=== PATIENT | female | born 1990 | race Caucasian/White ===

== ENCOUNTER 2017-11-11 19:42 | Emergency (ER) | payer MEDICAID ==
[2017-11-11 20:04] VITALS: RESP 20
[2017-11-11 20:59] LABS: HCG,QUALITATIVE URINE NEGATIVE (NEGATIVE)
[2017-11-11 21:04] LABS: SQUAMOUS EPITHIAL 1 /hpf (0-5); URINE BACTERIA RARE (<OCC); URINE BILIRUBIN NEGATIVE (NEGATIVE); URINE BLOOD NEGATIVE (NEGATIVE); URINE CALCIUM OXALATE CRYSTALS OCC /hpf (<OCC); URINE CLARITY Clear (Clear); URINE COLOR Yellow (YELLOW); URINE GLUCOSE (UA) NORMAL (Normal); URINE LEUKOCYTE ESTERASE NEG Leu/uL (Negative); URINE PROTEIN NEGATIVE (NEGATIVE); URINE UROBILINOGEN NORMAL mg/dL (0.2-1.0)
--- NOTE | 2017-11-11 21:39 | C.PDOC ---
History Of Present Illness Pt learned that her friend miriam cox this evening and developed shaking/ anxiety. 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 denies: Suicidal Thoughts, Suicidal Plan Additional History Per: Prior Records Past Medical History Reviewed: Historical Data, Nursing Documentation, Vital Signs Vital Signs: Last Vital Signs Temp 98.6 F 11/11/17 19:57 Pulse 103 H 11/11/17 19:57 Resp 20 11/11/17 19:57 BP 104/74 11/11/17 19:57 Pulse Ox 100 11/11/17 19:57 - Medical History PMH: No Chronic Diseases Surgical History: No Surg Hx Family History: States: Unknown Family Hx - Social History Hx Tobacco Use: No Hx Alcohol Use: No Hx Substance Use: No Review Of Systems Except As Marked, All Systems Reviewed And Found Negative. Constitutional: Negative for: Fever, Weakness Eyes: Negative for: Vision Change Cardiovascular: Negative for: Chest Pain Respiratory: Negative for: Shortness of Breath Gastrointestinal: Negative for: Vomiting, Abdominal Pain Musculoskeletal: Negative for: Neck Pain Skin: Negative for: Rash Neurological: Positive for: Headache. Negative for: Weakness, Numbness Psych: Negative for: Psychosis Physical Exam - Physical Exam Appears: Non-toxic, Other (Teaful affect) Skin: Normal Color, Warm, Dry, No Rash Head: Atraumatic, Normacephalic Eye(s): bilateral: PERRL, EOMI Neck: Normal ROM, Supple Cardiovascular: Rhythm Regular Respiratory: Normal Breath Sounds, No Accessory Muscle Use Gastrointestinal/Abdominal: Soft, No Tenderness Extremity: Normal ROM Neurological/Psych: Oriented x3, Normal Cognition, No Cerebellar Signs, Normal Motor, Normal Sensation Gait: Steady ED Course And Treatment - Laboratory Results Urine POC: Negative O2 Sat by Pulse Oximetry: 100 Pulse Ox Interpretation: Normal Reassessment Condition: Improved Disposition Counseled Patient/Family Regarding: Studies Performed, Diagnosis, Need For Followup, Rx Given - Disposition Disposition: HOME/ ROUTINE Disposition Time: 21:39 Condition: IMPROVED Additional Instructions: Follow up with your doctor. Return to the ER if you develop suicidal or homicidal thoughts, worsening of symptoms or if you have any other concerns. Instructions: Adjustment Disorder - Clinical Impression Clinical Impression: Adjustment reaction
[2017-11-11 22:23] VITALS: BP 100/70; PULSE 90; TEMP 98; O2SAT 98
== END 2017-11-11 22:22 | disposition home or self-care (01) ==
LOC: C.ER 19:42
DX: F43.20 Adjustment disorder, unspecified (principal)

== ENCOUNTER 2017-11-17 15:05 | Emergency (ER) | payer MEDICAID ==
[2017-11-17 15:15] VITALS: BP 135/83; PULSE 98; RESP 18; TEMP 98.5; O2SAT 97
[2017-11-17 16:15] LABS: SQUAMOUS EPITHIAL 23 /hpf (0-5); URINE BACTERIA FEW (<OCC); URINE BILIRUBIN NEGATIVE (NEGATIVE); URINE BLOOD 3+ (NEGATIVE); URINE CLARITY Hazy (Clear); URINE COLOR Yellow (YELLOW); URINE GLUCOSE (UA) NORMAL (Normal); URINE LEUKOCYTE ESTERASE 1+ Leu/uL (Negative); URINE PROTEIN NEGATIVE (NEGATIVE); URINE UROBILINOGEN NORMAL mg/dL (0.2-1.0)
--- NOTE | 2017-11-17 16:19 | C.PDOC ---
History Of Present Illness 27 yo female come in for evaluation of irregular menstrual period for past few months. Otherwise, pt denies fever, chills, recent illness, sore throat, abd. pain, V/D, UTI sx, back pain, hematuria. Ambulate to Ed for evaluation, not in any apparent distress. Time Seen by Provider: 11/17/17 15:18 Chief Complaint (Nursing): Female Genitourinary History Per: Patient Onset/Duration Of Symptoms: Intermittent Episodes Past Medical History Reviewed: Historical Data, Nursing Documentation, Vital Signs Vital Signs: Last Vital Signs Temp 98.5 F 11/17/17 15:11 Pulse 98 H 11/17/17 15:11 Resp 18 11/17/17 15:11 BP 135/83 11/17/17 15:11 Pulse Ox 97 11/17/17 16:45 - Medical History PMH: No Chronic Diseases Surgical History: No Surg Hx Family History: States: Unknown Family Hx - Social History Hx Tobacco Use: No Hx Alcohol Use: No Hx Substance Use: No - Immunization History Hx Tetanus Toxoid Vaccination: No Hx Pneumococcal Vaccination: No Review Of Systems Except As Marked, All Systems Reviewed And Found Negative. Constitutional: Negative for: Fever, Chills ENT: Negative for: Throat Pain Respiratory: Negative for: Cough, Shortness of Breath, Wheezing Gastrointestinal: Negative for: Nausea, Vomiting, Abdominal Pain Genitourinary: Positive for: Vaginal Bleeding (irregular). Negative for: Dysuria, Frequency, Hematuria Musculoskeletal: Negative for: Neck Pain, Back Pain Skin: Negative for: Rash Neurological: Negative for: Altered Mental Status, Headache Physical Exam - Physical Exam Appears: Well, Non-toxic, No Acute Distress Skin: Normal Color, Warm, Dry, No Rash Head: Normacephalic Eye(s): bilateral: PERRL Oral Mucosa: Moist Throat: No Erythema, No Drooling Neck: Trachea Midline, Supple Cardiovascular: Rhythm Regular, No Murmur, No JVD Respiratory: Normal Breath Sounds Gastrointestinal/Abdominal: Soft, No Tenderness, No Distention, No Guarding Back: No CVA Tenderness Extremity: Normal ROM, No Deformity, No Swelling Neurological/Psych: Oriented x3, Normal Speech ED Course And Treatment - Laboratory Results Urine POC: Negative O2 Sat by Pulse Oximetry: 97 Progress Note: On re-evaluation, pt is afebrile, hemodynamicaly stable. Non- toxic. Ambulatory in ED with stable gait. neck: Supple. Lungs: CTA B/L, BS equal B/L. CVS: (+)S1S2, reg. Abd: benign, (-) guarding, (-) rebound. UA results review (+) WBC, preg - negative. Pt has clinical findings UTI, irreg. menstrual period. Pt advised to F/u with DRY CELL TESTER in 2-3 days for re-eavl. return to Ed if any worsening or new changes. Disposition Counseled Patient/Family Regarding: Studies Performed, Diagnosis, Need For Followup, Rx Given - Disposition Referrals: [facility] at [facility] [Outside] [facility] [Outside] Disposition: HOME/ ROUTINE Disposition Time: 16:05 Condition: STABLE Additional Instructions: Light duty, avoid physical activity for 1 week Take pain medication as prescribed Follow up with PMD, Orthopedist in 2-3 days for re-evaluation. return to ED if any worsening or new changes. Prescriptions: Nitrofurantoin Macrocrystals [Macrobid] 1 cap PO BID #14 cap Instructions: Urinary Tract Infections in Adults, Absent or Irregular Periods Forms: [employer] (Latvian) - Clinical Impression Clinical Impression: UTI (urinary tract infection), Menses, irregular
== END 2017-11-17 16:48 | disposition home or self-care (01) ==
LOC: C.ER 15:05
DX: N39.0 Urinary tract infection, site not specified (principal); N92.6 Irregular menstruation, unspecified

== ENCOUNTER 2018-10-30 21:42 | Emergency (ER) | payer MEDICAID ==
[2018-10-30 21:58] VITALS: BP 132/87; PULSE 85; RESP 20; TEMP 98.4; O2SAT 100
--- NOTE | 2018-10-30 22:33 | C.PDOC ---
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 Patient reports she called a friends who suggested she might be having a heart attack. Patient became anxious, started having palpitations and came to the Ed for evaluation. Patient denies fever, chills, headache, visual changes, SOB, nausea, vomit, abdominal pain, injury, fall, trauma, prolonged travel, family history of cardiac disease. Time Seen by Provider: 10/30/18 22:10 Chief Complaint (Nursing): Upper Extremity Problem/Injury History Per: Patient History/Exam Limitations: no limitations Onset/Duration Of Symptoms: Hrs (1) Current Symptoms Are (Timing): Still Present Quality: "Pain" Recent travel outside of the [place]: No Additional History Per: Patient Past Medical History Reviewed: Historical Data, Nursing Documentation, Vital Signs Vital Signs: Last Vital Signs Temp 98.4 F 10/30/18 21:48 Pulse 85 10/30/18 21:48 Resp 20 10/30/18 21:48 BP 132/87 10/30/18 21:48 Pulse Ox 100 10/30/18 21:48 - Medical History PMH: No Chronic Diseases Surgical History: No Surg Hx Family History: States: Unknown Family Hx - Social History Hx Tobacco Use: No Hx Alcohol Use: No Hx Substance Use: No - Immunization History Hx Tetanus Toxoid Vaccination: No Hx Pneumococcal Vaccination: No Review Of Systems Constitutional: Negative for: Fever, Chills Cardiovascular: Positive for: Palpitations. Negative for: Chest Pain, Light Headedness Respiratory: Negative for: Cough, Shortness of Breath Gastrointestinal: Negative for: Nausea, Vomiting, Abdominal Pain Musculoskeletal: Positive for: Shoulder Pain, Arm Pain Skin: Negative for: Rash Neurological: Negative for: Weakness, Numbness, Headache, Dizziness Physical Exam - Physical Exam Appears: Non-toxic, No Acute Distress Skin: Normal Color, Warm, Dry Head: Atraumatic, Normacephalic Eye(s): bilateral: Normal Inspection Neck: Normal ROM, Supple Chest: Symmetrical, No Tenderness Cardiovascular: Rhythm Regular Respiratory: Normal Breath Sounds, No Rales, No Rhonchi, No Wheezing Gastrointestinal/Abdominal: Soft, No Tenderness, No Guarding, No Rebound Back: No Vertebral Tenderness Extremity: Normal ROM, No Tenderness, No Swelling Neurological/Psych: Oriented x3, Normal Speech, Normal Cognition Gait: Steady ED Course And Treatment ECG: Interpreted By Me, Viewed By Me ECG Rhythm: Sinus Rhythm ECG Interpretation: Normal Rate From EC (BPM) O2 Sat by Pulse Oximetry: 100 (ON RA) Pulse Ox Interpretation: Normal Progress Note: Plan: - EKG. Patient was reassured and advised to take NSAIDs for pain management. Patient was also advised to follow up with PMD for further evaluation. 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 - Scribe Statement The provider has reviewed the documentation as recorded by the Scribe River Dumont All medical record entries made by the Scribe were at my direction and personally dictated by me. I have reviewed the chart and agree that the record accurately reflects my personal performance of the history, physical exam, medical decision making, and the department course for this patient. I have also personally directed, reviewed, and agree with the discharge instructions and disposition.
--- NOTE | 2018-10-31 11:27 | CARD ---
APPROVED REPORT Date of service: 10/30/2018 EKG Measurement Heart [id number] <Conclusion> Normal sinus rhythm Normal ECG
== END 2018-10-30 22:48 | disposition home or self-care (01) ==
LOC: C.ER 21:42
DX: M25.512 Pain in left shoulder (principal); R00.2 Palpitations